=== PATIENT | male | born 1970 | race Caucasian/White ===

== ENCOUNTER 2021-10-05 08:06 | Outpatient (CLI) | payer BC, SELFPAY ==
--- NOTE | 2021-10-05 08:19 | ECG_ITS ---
Measurements Intervals Grace Rate: 73 P: 42 MS: 151 QRS: 27 QRSD: 105 T: 28 QT: 349 QTc: 387 Interpretive Statements SINUS RHYTHM INCOMPLETE RIGHT BUNDLE BRANCH BLOCK BORDERLINE ECG Electronically Signed On 10-05-2021 9:15:07 PLAN NURSE by Bandar Lehman D.O.
== END 2021-10-05 08:07 | disposition home or self-care (01) ==
LOC: ANHCARD 08:09
PROVIDERS: PCP Physician Assistant; Visit Provider Physician Assistant
DX: Z01.818 Encounter for other preprocedural examination (principal); I45.10 Unspecified right bundle-branch block
CPT/HCPCS: 93005

== ENCOUNTER 2024-10-20 09:41 | Emergency (ER) | payer BC, SELFPAY ==
[2024-10-20 09:42] VITALS: BP 196/117; PULSE 65; RESP 16; TEMP 36.6; O2SAT 100
--- OUTSIDE RECORDS SUMMARY | 2024-10-20 10:31 | XMS_ITS | Clinical Summary ---
Author Organization [facility] [place] Address [address] [place] [address] Phone Care Team Providers Care Resource Technician Name Role Phone Yessica Beltrna [facility] Primary Care Pro vider Allergies Active Allergy Reactions Criticality Noted Date Comments Penicillins Unknown 11/24/2021 Medications lisinopril (PRINIVIL, ZESTRIL) 20 MG Tablet Take 1 Tablet by mouth daily. 90 Tablet 3 2 Active Additional Information Patient not taking.Reported on 01/03/2024 neomycin-polymy leola-dexamethaso ne (Maxitrol) 0.1 % Suspension Place 1 Drop in affected eye(s) 4 times daily. 5 mL 2 Active Additional Information Patient not taking.Reported on 01/03/2024 finasteride (PROSCAR) 5 MG Tablet 4 Active testosterone cypionate (DEPO-TESTOSTER ONE) 200 MG/ML Solution 4 Active B-D 3CC LUER-JARED SYR 25GX1 25G X 1 3 ML Misc 4 Active BD Hypodermic Needle 18G X 1 Misc 4 Active ergocalciferol (VITAMIN D) 99179 UNIT Capsule 4 Active Active Problems Problem Noted Date Diagnosed Date Varicose veins of left lower extremity 4 Encounters Date Type Department Care Team Description 10/20/2024 Telephone [facility] - Internal Medicine - [place] [address] [place] [address] Yessica Beltran, TING from Last 3 Months Family History Medical History Relation Name Comments Congestive Heart Failure Brother High Cholesterol Brother Cancer Father lung High Cholesterol Father High Cholesterol Mother Cancer Sister ovarian High Cholesterol Sister Hypertension Sister Relation Name Status Comments Brother Father Mother Sister Social History Tobacco Use Types Packs/Day Years Used Date Smoking Tobacco: Never Smokeless Tobacco: Never Tobacco Cessation:Counseling Given: No Alcohol Use Standard Drinks/Week Comments Yes 2 (1 standard drink = 0.6 oz pur e alcohol) [facility] Utilities Answer Date Recorded In the past 12 months has th e electric, gas, oil, or water company threatened to shut off services in your home? No 01/03/2024 Social Connection and Isolat ion Panel [NHANES] Answer Date Recorded In a typical week, how many times do you talk on the phone with family, friends, or neighbors? More than three times a week 01/03/2024 How often do you get togethe r with friends or relatives? Twice a week 01/03/2024 How often do you attend chur ch or sikh services? More than 4 times per year 01/03/2024 Do you belong to any clubs o r organizations such as taoist groups, unions, fraternal or athletic groups, or school groups? Yes 01/03/2024 How often do you attend meet ings of the clubs or organizations you belong to? More than 4 times per year 01/03/2024 Are you , , di vorced, , never , or living with a partner? 01/03/2024 AUDIT-C Answer Date Recorded Q1: How often do you have a drink containing alc ohol? 2-4 times a month 01/03/2024 Q2: How many drinks containi ng alcohol do you have on a typical day when you are drinking? 1 or 2 01/03/2024 Q3: How often do you have si x or more drinks on one occasion? Never 01/03/2024 Overall Financial Resource Strain (CARDIA) Answe r Date Recorded How hard is it for you to pa y for the very basics like food, housing, medical care, and heating? Not hard at all 01/03/2024 PHQ-2 Answer Date Recorded Total Score - Questions 1-9 0 11/07 [facility] of Occupat ional Health - Occupational Stress Questionnaire Answer Date Recorded Do you feel stress - tense, restless, nervous, or anxious, or unable to sleep at night because your mind is troubled all the time - these days? To some extent 01/03/2024 Exercise Vital Sign Answer Date Recorde d On average, how many days pe r week do you engage in moderate to strenuous exercise (like a brisk walk)? 3 days 01/03/2024 On average, how many minutes do you engage in exercise at this level? 30 min 01/03/2024 Hunger Vital Sign Answer Date Recorded Within the past 12 months, y ou worried that your food would run out before you got the money to buy more. Never true 01/03/20 24 Within the past 12 months, t he food you bought just didn't last and you didn't have money to get more. Never true 01/03/2024 PRAPARE - Transportation Answer Date Re corded In the past 12 months, has l ack of transportation kept you from medical appointments or from getting medications? No 12/09 In the past 12 months, has l ack of transportation kept you from meetings, work, or from getting things needed for daily living? No 01/03/2024 Housing Stability Vital Sign Answer Nahid e Recorded In the last 12 months, was t here a time when you were not able to pay the mortgage or rent on time? No 01/03/2024 In the last 12 months, how many places have you lived? 1 01/03/2024 In the last 12 months, was t here a time when you did not have a steady place to sleep or slept in a senior living (including now)? No 01/03/2024 Sexually Active Control Partners Comments Yes Female Sex and Gender Information Value Date Recorded Sex Assigned at Not on file Legal Sex Male 10:24 PM CDT Gender Identity Not on file Sexual Orientation Not on file Last Filed Vital Signs Vital Sign Reading Time Taken Comments Blood Pressure 140/100 01/03/2024 2:37 PM CDT Pulse 61 01/03/2024 2:37 PM CDT Temperature 36.7 C (98.1 F) 01/03/2024 2:37 PM CDT Respiratory Rate 12 01/03/2024 2:37 PM CDT Oxygen Saturation 98% 01/03/2024 2:37 PM CDT Inhaled Oxygen Concentration - - Weight 98 kg (216 lb) 01/03/2024 2:37 PM CDT Height 177.8 cm (5' 10 ) 01/03/2024 2:37 PM CDT Body Mass Index 30.99 01/03/2024 2:37 PM CDT Plan of Treatment Health Maintenance Due Date Last Done Comments Hepatitis C Virus (HCV) Screening 1969 Hepatitis B Immunization (1 of 3 - 19+ 3-dose series) 1988 Cologuard 2019 Immunochemical Fecal Occult Blood 2019 Pneumococcal Immunization (5 0+ years) (1 of 1 - PCV) 2019 Zoster Immunization (1 of 2) 2019 Influenza Immunization (#1) 2024 SARS-COV-2 Immunization ( - 2023- season) 2024 Colonoscopy 03/02/2027 03/02/2022 Colorectal Cancer Screening 03/02/2027 Respiratory Syncytial Virus (RSV) Immunization (Adult) (1 - 1-dose 75+ series) 2044 03/02/2022 DTaP/Tdap/Td Immunization Discontinued 09/27/2006 TdaP Immunization Completed 09/27/2006 Meningococcal Immunization (ACWY) Aged Out No longer eligible based on patient's age to complete this topic Rotavirus Immunization Aged Out No lo nger eligible based on patient's age to complete this topic Insurance [facility] Care Teams Resource Technician Relationship Specialty Start Date End Date Yessica Beltran, TING [address] [place] [address] PCP - General Physician Satellite Communications Engineer 11/27/21
--- OUTSIDE RECORDS SUMMARY | 2024-10-20 10:31 | XMS_ITS | Encounter Summary ---
Author Organization [facility] Address [address] [place] [address] Phone Care Team Providers Care Interior Wall Assembler Name Role Phone Yessica Beltran PAC Primary Care Pro vider Encounter Details Date Type Department Care Team (Late st Contact Info) Description 10/20/2024 Telephone [facility] - [place] [address] [place] [address] Yessica Beltran, PAC [address] [place] [place] [address] Social History Tobacco Use Types Packs/Day Years Used Date Smoking Tobacco: Never Smokeless Tobacco: Never Alcohol Use Standard Drinks/Week Comments Yes 2 (1 standard drink = 0.6 oz pur e alcohol) [facility] Utilities Answer Date Recorded In the past 12 months has [employer], gas, oil, or water [employer] threatened to shut off services in your [...] 01/03/2024 How often do you attend chur or lutheran services? More than 4 times per year 01/03/2024 Do you belong to any clubs o r organizations such as jew groups, unions, fraternal or athletic groups, or [...] Total Score - Questions 1-9 0 11/07 [facility] of Occupat ional Health - Occupational Stress [...] place to sleep or slept in a fdc (including now)? No 01/03/2024 Sexually Active Control Partners Comments Yes Female Sex and Gender Information Value Date Recorded Sex Assigned at Not on file Legal Sex Male 10:24 PM CDT Gender Identity Not on file Sexual Orientation Not on file documented as of this encounter Miscellaneous Notes * Telephone Encounter - James Grant MD - 10/20/2024 10:21 AM SENIOR MAINFRAME PROGRAMMER ANALYST Noted. OR MAINFRAME PROGRAMMER ANALYST * Telephone Encounter - Karen Velarde RN - 10/20/2024 9:26 AM CST Pt called and states he has a BP of 220/115 Bp was instructed to go to ER now. Pt verbalizes understanding OR MAINFRAME PROGRAMMER ANALYST documented in this encounter Plan of Treatment Not on file documented as of this encounter Visit Diagnoses Not on filedocumented in this encounter Care Teams Interior Wall Assembler Relationship Specialty Start Date End Date Yessica Beltran PAC [address] [place] [address] PCP - General Physician Scalder 11/27/21 documented as of this encounter
--- OUTSIDE RECORDS SUMMARY | 2024-10-20 10:31 | XMS_ITS | Referral Summary ---
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/23/2014 Overview (12/14/2016): MIXED HYPERLIPIDEMIA Immunizations Name Administration Dates Next Due Tdap 09/27/2006 Social History Tobacco Use Types Packs/Day Years Used Date Smoking Tobacco: Never Assessed Alcohol Use Standard Drinks/Week Comments No 0 (1 standard drink = 0.6 oz pur e alcohol) Sex and Gender Information Value Date Recorded Sex Assigned at Not on file Legal Sex Male 11:55 PM FELT COVERER Gender Identity Not on file Sexual Orientation Not on file Last Filed Vital Signs Vital Sign Reading Time Taken Comments Blood Pressure - - Pulse - - Temperature - - Respiratory Rate - - Oxygen Saturation - - Inhaled Oxygen Concentration - - Weight 78.9 kg (174 lb) 07/08/2012 2:08 PM CDT Height 175.3 cm (5' 9.02 ) 07/08/2012 2:08 PM CD T Body Mass Index 25.68 07/08/2012 2:08 PM CDT Plan of Treatment Not on file Insurance [employer] Care Teams Block Setter Gypsum Relationship Specialty Start Date End Date Natty Mendoza MD [address] [place] [address] PCP - General 11/25/06
--- OUTSIDE RECORDS SUMMARY | 2024-10-20 10:32 | XMS_ITS | Clinical Summary ---
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 Overview (12/14/2016): MIXED HYPERLIPIDEMIA Immunizations Name Administration Dates Next Due Tdap 09/27/2006 Surgical History Surgery Date Site/Laterality Comments OTHER SURGICAL HISTORY rt TMJ: resolved Medical History Medical History Date Comments Hx Other Medical 2003 Appendectomy Hx Other Medical 2010 vasectomy Hx Other Medical rt TMJ Family History Medical History Relation Name Comments Heart attack Brother 4 Kedar myocardial infa rction; Cause of : myocardial infarction Other Brother 5 Mike Alive and well; Other Brother 6 Devyn Alive and well; Lung cancer Father 2 Cancer, lung; C ause of : Cancer, lung Other Mother 2 Hepatitis liver disease; Cause of : Hepatitis liver disease Other Sister 3 Yvonne Alive and well; Other Sister 4 Yumiko Alive and well; Relation Name Status Comments Brother 1 Kedar Brother 2 Devyn Alive Brother 3 Mike Alive Brother 4 Kedar Brother 5 Mike Brother 6 Devyn Father 1 Father 2 Mother 1 Mother 2 Sister 1 Yvonne Alive Sister 2 Yumiko Alive Sister 3 Yvonne Sister 4 Yumiko Social History Tobacco Use Types Packs/Day Years Used Date Smoking Tobacco: Never Assessed Alcohol Use Standard Drinks/Week Comments No 0 (1 standard drink = 0.6 oz pur e alcohol) Sex and Gender Information Value Date Recorded Sex Assigned at Not on file Legal Sex Male 11:55 PM RETAIL LEASING AGENT Gender Identity Not on file Sexual Orientation Not on file Obstetrics History Last Filed Vital Signs Vital Sign Reading [...] 07/08/2012 2:08 PM CDT Plan of Treatment Health Maintenance Due Date Last Done Comments Colon Cancer Screening-Colonoscopy 1969 Depression Screening 1969 Hepatitis C Screening 1969 Prostate Cancer Screening-PSA 1969 Hepatitis B Screening 1987 Regular Well Visit/Exam 18-64 1987 DTaP/Tdap/Td Vaccine (2 - Td or Tdap) 09/27/2016 09/27/2006 Zoster Vaccine (1 of 2) 2019 Influenza Vaccine (#1) 2024 Pneumococcal vaccine <65 Aged Out No longer eligible based on patient's age to complete this topic Insurance [employer] ACC[employer] Care Teams Used Car Make Ready Mechanic Relationship Specialty Start Date End Date Natty Mendoza MD [address] [place] [place] [address] PCP - General 11/25/06
[2024-10-20 11:05] VITALS: BP 175/112; PULSE 70; RESP 13; O2SAT 98
--- NOTE | 2024-10-20 11:39 | ED.RECABL ---
HPI - Recheck/Abnormal Lab/Rx General Chief Complaint: Recheck/Abnormal Lab/Rx Stated Complaint: high blood pressure Time Seen by Provider: 10/20/24 11:08 History of Present Illness HPI narrative: Patient has had a viral syndrome for the last few days has a slight headache, but comes and goes, he checked his blood pressure and was quite high at home several times. No chest pain, shortness of breath, no severe headache right now. Related Data Allergies Allergy/AdvReac Type Severity Reaction Status Date / Time Penicillins Allergy Unknown UNKNOWN Verified 10/20/24 11:04 Review of Systems Review of Systems: All systems reviewed & are unremarkable except as noted in HPI and below PMFSH Family History Family History Father Lung cancer Mother No problems noted. Sibling Heart disease Social History Social History Smoking packs per day: 0 Smoking cigarettes per day: 0.0 Years smoked: 0 Smoking pack-years: 0.00 Smoking status: Never smoker Second hand tobacco smoke exposure: No Alcohol intake: never Substance use: never Living arrangements: alone Gender identity (if verbalized by the patient): Male Exam Narrative: EXAMINATION OF ORGAN SYSTEMS/BODY AREAS: Constitutional: Vital signs per nursing GENERAL:[No acute distress, non-toxic appearing.] HEAD: Normal with no signs of head trauma. EYES: EOMI, conjunctiva normal ENT: Hearing grossly intact LUNGS: Nonlabored breathing. HEART: [Regular rate and rhythm] ABD: [Soft], [nontender to palpation] EXT: Normal range of motion SKIN: [No rashes or lesions.] NEURO: [Alert and oriented x 3. No gross focal sensory or strength deficits.] PSYCH: Normal affect Course Vital Signs Vital signs: Vital Signs Temperature 97.8 F 10/20/24 09:42 Pulse Rate 65 10/20/24 09:42 Respiratory Rate 16 10/20/24 09:42 Blood Pressure 196/117 H 10/20/24 09:42 Pulse Oximetry 100 10/20/24 09:42 Oxygen Delivery Room Air 10/20/24 09:42 Temperature 97.8 F 10/20/24 09:42 Pulse Rate 70 10/20/24 11:05 Respiratory Rate 13 10/20/24 11:05 Blood Pressure 175/112 H 10/20/24 11:05 Pulse Oximetry 98 10/20/24 11:05 Oxygen Delivery Room Air 10/20/24 09:42 MDM - Recheck/Abnormal Lab/Rx MDM Narrative Medical decision making narrative: Patient with asymptomatic hypertension. No signs or symptoms of end organ dysfunction; no chest pain or shortness of breath, neurological deficits, severe headaches, visual disturbance, oliguria, or symptoms of dissection/AAA). Long-term risks of hypertension, especially uncontrolled, were discussed including increased risks of kidney disease, vascular disease, stroke and heart disease. We discussed lifestyle modifications including diet and exercise. I will start patient on amlodipine here and provide script for short course, patient expressed understanding of the instructions and strongly advised to follow-up with PMD for further management. Discharge Plan Discharge Clinical Impression: Elevated BP without diagnosis of hypertension Patient Disposition: Home, Self-Care Condition: Stable Instructions: Hypertension (ED), Normal Exam (ED) Additional Instructions: Please follow-up with the primary care doctor. If you do not have one, you can call the number below for an appointment. Come back to the emergency room if you start having any severe chest pain, shortness of breath, headache, new numbness or weakness, or anything else concerning. Patient Language: Malaysian Prescriptions: New amlodipine [Norvasc] 2.5 mg tablet 2.5 mg PO DAILY Qty: 30 0RF Follow-up/Referrals: Ruby,RICKI Juan [Primary Care Provider] - Germain Crump MD [Physician] - 2 Days
[2024-10-20 11:49] VITALS: BP 166/117; PULSE 67; RESP 16; O2SAT 98
--- OUTSIDE RECORDS SUMMARY | 2024-10-20 12:36 | XMS_ITS | Clinical Summary ---
Author Organization [address] Address [address] [place] [phone] Care Team Providers Care Grab Setter Name Role Phone Natty Mendoza MD Primary Care Provider +1- [phone] Allergies Active Allergy Reactions Criticality Noted Date [...] on file Legal Sex Male 11:55 PM STAFF DESIGN ENGINEER Gender Identity Not on file Sexual Orientation [...] patient's age to complete this topic Insurance [email or web address] [facility] Address: [place] [address] Care Teams Grab Setter Relationship Specialty Start Date End Date Natty Mendoza MD [address] [place] [place] [address] PCP - General 11/25/06
--- OUTSIDE RECORDS SUMMARY | 2024-10-20 12:36 | XMS_ITS | Clinical Summary ---
Author Organization [facility] [place] Address [address] [place] [address] Phone Care Team Providers Care Supervisor Boilermaking Shop Name Role Phone Yessica Beltran [facility] Primary Care Pro vider Allergies Active [...] 1 Misc 4 Active ergocalciferol (VITAMIN D) 16390 UNIT Capsule 4 Active Active Problems Problem Noted Date Diagnosed Date Varicose veins of left lower extremity 4 Encounters Date Type Department Care Team Description 10/20/2024 Telephone [facility] - Internal Medicine - [place] [address] [place] [address] Yessica Beltran, TING from Last 3 [...] drink = 0.6 oz pur e alcohol) [facility] Utilities Answer Date Recorded In [...] often do you attend chur ch or mandaen services? More than 4 times per year 01/03/2024 Do you belong to any clubs o r organizations such as mosque groups, unions, fraternal or athletic groups, or [...] Total Score - Questions 1-9 0 11/07 [facility] of Occupat ional Health - Occupational Stress [...] place to sleep or slept in a snf (including now)? No 01/03/2024 Sexually Active Control [...] patient's age to complete this topic Insurance [facility] Care Teams Supervisor Boilermaking Shop Relationship Specialty Start Date End Date Yessica Beltran, TING [address] [place] [address] PCP - General Physician Books Salesperson 11/27/21
--- OUTSIDE RECORDS SUMMARY | 2024-10-20 12:36 | XMS_ITS | Encounter Summary ---
Author Organization [facility] Address [address] [place] [address] Phone Care Team Providers Care Work Environment Safety Inspector Name Role Phone Yessica Beltran PAC Primary Care Pro vider Encounter Details Date Type Department Care Team (Late st Contact Info) Description 10/20/2024 Telephone [facility] - [facility] - [place] [address] [place] [address] Yessica Beltran, PAC [address] [place] [address] Social History Tobacco Use Types Packs/Day Years Used Date Smoking Tobacco: Never Smokeless Tobacco: Never Alcohol Use Standard Drinks/Week Comments Yes 2 (1 standard drink = 0.6 oz pur e alcohol) [facility] Utilities Answer Date Recorded In the past 12 months has [email or web address], gas, oil, or water [employer] threatened to shut off services in your [...] How often do you attend chur or anabaptist services? More than 4 times per year 01/03/2024 Do you belong to any clubs o r organizations such as amish groups, unions, fraternal or athletic groups, or [...] Total Score - Questions 1-9 0 11/07 [facility] of Occupat ional Health - Occupational [...] place to sleep or slept in a group home (including now)? No 01/03/2024 Sexually Active Control Partners Comments Yes Female Sex and Gender Information Value Date Recorded Sex Assigned at Not on file Legal Sex Male 10:24 PM CDT Gender Identity Not on file Sexual Orientation Not on file documented as of this encounter Miscellaneous Notes * Telephone Encounter - James Grant MD - 10/20/2024 10:21 AM PARCEL POST TRUCK DRIVER Noted. EL POST TRUCK DRIVER * Telephone Encounter - Karen Velarde RN - 10/20/2024 9:26 AM CST Pt called and states he has a BP of 220/115 Bp was instructed to go to ER now. Pt verbalizes understanding EL POST TRUCK DRIVER documented in this encounter Plan of Treatment Not on file documented as of this encounter Visit Diagnoses Not on filedocumented in this encounter Care Teams Work Environment Safety Inspector Relationship Specialty Start Date End Date Yessica Beltran PAC [address] [place] [address] PCP - General Physician Concrete Tile Machine Operator 11/27/21 documented as of this encounter
--- OUTSIDE RECORDS SUMMARY | 2024-10-20 12:36 | XMS_ITS | Referral Summary ---
Author Organization [address] Address [address] [place] [phone] Care Team Providers Care Air Traffic Control Operator Name Role Phone Natty Mendoza MD Primary Care Provider +1- [phone] Allergies Active Allergy Reactions Criticality Noted Date [...] on file Legal Sex Male 11:55 PM ASSOCIATE PROFESSOR OF PHYSICS Gender Identity Not on file Sexual Orientation [...] on file Insurance [employer] Care Teams Air Traffic Control Operator Relationship Specialty Start Date End Date Natty Mendoza MD [address] [place] [address] PCP - General 11/25/06
== END 2024-10-20 11:50 | disposition home or self-care (01) ==
PROVIDERS: Emergency Provider Emergency Medicine; PCP Physician Assistant
DX: R03.0 Elevated blood-pressure reading, without diagnosis of hypertension (principal)
CPT/HCPCS: 99283